=== PATIENT | male | born 1980 | race Caucasian/White ===

== ENCOUNTER 2020-12-05 06:23 | Emergency (ER) | payer OTHER ==
[2020-12-05] MEDS ORDERED: NAPROXEN500 MG PO (07:36)
[2020-12-05] MEDS ORDERED: CYCLOBENZAPRINE10 MG PO (07:36)
== END 2020-12-05 08:14 | disposition home or self-care (01) ==
LOC: FER 06:23
DX: S39.012A Strain of muscle, fascia and tendon of lower back, initial encounter (principal); Z88.5 Allergy status to narcotic agent; X50.1XXA Overexertion from prolonged static or awkward postures, initial encounter; Y92.009 Unspecified place in unspecified non-institutional (private) residence as the place of occurrence of the external cause
CPT/HCPCS: 72110

== ENCOUNTER 2021-06-14 21:38 | Emergency (ER) | payer OTHER ==
[~2021-06-14 21:38] MED LIST: CYCLOBENZAPRINE10 MG PO; NAPROXEN500 MG PO
[2021-06-15 01:02] LABS: INFLUENZA A NAA NEGATIVE (NEGATIVE)
[2021-06-15 01:04] LABS: CORONAVIRUS 2019 SARS-COV-2 POSITIVE (NEGATIVE)
[2021-06-15 01:27] LABS: BASOPHIL 0.6 % (0-2); EOSINOPHIL 0 % (0-5); HCT 45.6 % (42.0-52.0); HGB 15.5 g/dl (13.2-18.0); LYMPHOCYTE 6.9 % (15-48); MCH 29.8 pg (25.0-31.0); MCV 87.7 fL (78.0-100.0); MONOCYTE 8.3 % (0-12); MPV 9.2 fL (6.0-9.5); NEUTROPHIL 83.8 % (41-80); NRBC 0; PLT 219 K/uL (150-400); RDW 12.2 % (11.5-14.0); WBC 7.9 K/uL (4.0-10.5)
[2021-06-15 02:05] LABS: BUN/CREAT RATIO (CALC) 13.1 RATIO; CREATININE 1.22 mg/dL (0.67-1.17); POTASSIUM 4.6 mmol/L (3.5-5.1)
[2021-06-15] MEDS ORDERED: ANTIVERT25 MG PO (02:16)
[2021-06-15] MEDS ORDERED: IBUPROFEN800 MG PO (02:16)
== END 2021-06-15 02:42 | disposition home or self-care (01) ==
LOC: FER 21:38
PROVIDERS: Emergency Medicine Emergency Medical Services
DX: U07.1 COVID-19 (principal); M54.50 Low back pain, unspecified; J45.909 Unspecified asthma, uncomplicated; Z88.5 Allergy status to narcotic agent
CPT/HCPCS: 36415; 71046; 80048; 82728; 85025; 85379; J1885; U0002

== ENCOUNTER 2021-12-30 06:11 | Emergency (ER) | payer OTHER ==
[~2021-12-30 06:11] MED LIST changes: +ANTIVERT25 MG PO; +IBUPROFEN800 MG PO
[2021-12-30 06:56] LABS: BASOPHIL 0.7 % (0-2); EOSINOPHIL 2.1 % (0-5); HCT 43.1 % (42.0-52.0); HGB 14.8 g/dl (13.2-18.0); LYMPHOCYTE 26.9 % (15-48); MCH 29.8 pg (25.0-31.0); MCHC 34.3 g/dL (32.0-36.0); MCV 86.7 fL (78.0-100.0); MPV 9.4 fL (6.0-9.5); NEUTROPHIL 65.9 % (41-80); NRBC 0; PLT 274 K/uL (150-400); RBC 4.97 M/uL (4.70-6.00); RDW 12.3 % (11.5-14.0); WBC 8.4 K/uL (4.0-10.5)
[2021-12-30 07:22] LABS: ALBUMIN 3.5 g/dL (3.4-5.0); BILIRUBIN - TOTAL 0.2 mg/dL (0.2-1.0); BUN/CREAT RATIO (CALC) 12.7 RATIO; CREATININE 1.02 mg/dL (0.67-1.17); GLOBULIN (CALCULATION) 2.8 g/dL; POTASSIUM 3.9 mmol/L (3.5-5.1); TOTAL PROTEIN 6.3 g/dL (6.4-8.2)
[2021-12-30 08:59] LABS: FLU B NEGATIVE B (NEGATIVE B)
== END 2021-12-30 08:17 | disposition home or self-care (01) ==
LOC: FER 06:11
PROVIDERS: Emergency Medicine
DX: R42 Dizziness and giddiness (principal); U07.1 COVID-19; Z88.6 Allergy status to analgesic agent
CPT/HCPCS: 36415; 70450; 80053; 84484; 85025; 87804; 87899; 93005; J2405; J7030; U0002